=== PATIENT | female | born 1955 | race Caucasian/White ===

== ENCOUNTER → 2018-03-23 | Outpatient (CLI) | payer OTHER | END | disposition home or self-care (01) | LOC: LAB SHORT 10:16 → LAB 10:16 | PROVIDERS: Obstetrics & Gynecology | DX: Z01.419 Encounter for gynecological examination (general) (routine) without abnormal findings (principal) | CPT/HCPCS: 87624; G0123 ==

== ENCOUNTER → 2018-07-12 | Outpatient (CLI) | payer OTHER ==
[2018-07-13 09:39] LABS: Candida species (DNA Probe) Negative (NEGATIVE); G. vaginalis (DNA Probe) Negative (NEGATIVE); T. vaginalis (DNA Probe) Negative (NEGATIVE)
== END | disposition home or self-care (01) ==
LOC: LAB 14:18 → LAB SHORT 14:18
PROVIDERS: Obstetrics & Gynecology
DX: N76.0 Acute vaginitis (principal)
CPT/HCPCS: 87480; 87510; 87660

== ENCOUNTER → 2019-03-28 | Outpatient (CLI) | payer OTHER ==
[2019-03-30 15:06] LABS: HPV 16 Negative (Negative); HPV 18 Negative (Negative); HPV OTHER HR TYPES Positive (Negative)
== END | disposition home or self-care (01) ==
LOC: LAB 11:14 → LAB SHORT 11:14
PROVIDERS: Nurse Practitioner Obstetrics & Gynecology
DX: Z01.419 Encounter for gynecological examination (general) (routine) without abnormal findings (principal)
CPT/HCPCS: 87624; 87625; G0123

== ENCOUNTER → 2021-01-20 | Outpatient (CLI) | payer OTHER ==
[2021-01-21 16:09] LABS: HPV 16 Negative (Negative); HPV 18 Negative (Negative); HPV OTHER HR TYPES Positive (Negative)
== END | disposition home or self-care (01) ==
LOC: LAB SHORT 13:49 → LAB 13:49
PROVIDERS: Obstetrics & Gynecology
DX: Z01.419 Encounter for gynecological examination (general) (routine) without abnormal findings (principal)
CPT/HCPCS: 87624; G0123

== ENCOUNTER → 2022-02-04 | Outpatient (CLI) | payer OTHER ==
[2022-02-05 16:11] LABS: HPV 16 Negative (Negative); HPV 18 Negative (Negative); HPV OTHER HR TYPES Positive (Negative)
== END | disposition home or self-care (01) ==
LOC: LAB 08:45 → LAB SHORT 08:45
PROVIDERS: Obstetrics & Gynecology
DX: Z01.419 Encounter for gynecological examination (general) (routine) without abnormal findings (principal)
CPT/HCPCS: 87624; G0123

== ENCOUNTER → 2023-08-09 | Outpatient (CLI) | payer OTHER ==
[2023-08-11 15:11] LABS: HPV 16 Negative (Negative); HPV 18 Negative (Negative); HPV OTHER HR TYPES Negative (Negative)
== END ==
LOC: LAB 15:22 → LAB SHORT 15:22
PROVIDERS: Obstetrics & Gynecology
DX: Z01.419 Encounter for gynecological examination (general) (routine) without abnormal findings (principal)
CPT/HCPCS: 87624; G0145

== ENCOUNTER 2023-09-13 06:51 | Day surgery (SDC) | payer OTHER ==
[~2023-09-13] VITALS: Ht 162.6 cm; Wt 63.8 kg
[2023-09-13] MEDS ORDERED: ALPRAZOLAM110 PO (07:04)
[2023-09-13] MEDS ORDERED: EUTHYROX88 MC1 PO (07:04)
[2023-09-13] MEDS ORDERED: PRAMIPEXOLE0.125 M1 PO (07:04)
[2023-09-13] MEDS ORDERED: OMEP20ER PO (07:05)
[2023-09-13] MEDS ORDERED: Nadolol20 MG (07:05)
[2023-09-13] MEDS ORDERED: NEURONTIN300 MG PO (07:05)
[2023-09-13] MEDS ORDERED: ROSUVASTATIN CA10 MG PO (07:06)
[2023-09-13] MEDS ORDERED: PROZAC2010 PO (07:06)
--- NOTE | 2023-09-13 07:13 | NUR ---
09/13/23 0713 Jonathan Perez CALL LIGHT WITHIN REACH.
[2023-09-13 08:52] VITALS: BP 102/66
== END 2023-09-13 09:17 | disposition home or self-care (01) ==
LOC: ORSCSDS 06:51
DX: H02.831 Dermatochalasis of right upper eyelid (principal); H02.834 Dermatochalasis of left upper eyelid; H35.3130 Nonexudative age-related macular degeneration, bilateral, stage unspecified; F17.210 Nicotine dependence, cigarettes, uncomplicated; H25.13 Age-related nuclear cataract, bilateral; H52.222 Regular astigmatism, left eye; H52.4 Presbyopia; I10 Essential (primary) hypertension; E07.9 Disorder of thyroid, unspecified; Z79.899 Other long term (current) drug therapy
CPT/HCPCS: A9270; J2250; J2704; J3010; J7040

== ENCOUNTER 2024-08-23 13:41 | Day surgery (SDC) | payer OTHER ==
[~2024-08-23] VITALS: Ht 162.6 cm; Wt 58.6 kg
[~2024-08-23 13:41] MED LIST: ALPRAZOLAM110 PO; Atropine Sulfate 0.1 MG/ML 10ML SYR ONE; EUTHYROX88 MC1 PO; Glycopyrrolate 0.2 MG/ML 1MLVIAL ONE; Lactated Ringer's 1,000 ML IV ONE; Lidocaine 2% 5 ML SDV ONE; Lidocaine HCl/Pf 1% 5 ML VIAL ONE; Methylene Blue 1% 100 MG/10 ML VIAL ONE; NEURONTIN300 MG PO; Nadolol20 MG; OMEP20ER PO; Ondansetron HCl 2 MG / ML 2ML Vial ONE; PRAMIPEXOLE0.125 M1 PO; PROZAC2010 PO; ROSUVASTATIN CA10 MG PO; ePHEDrine Sulfate 50 MG/ML 1ML Injection ONE; propofoL 50 ML IV ONE
[2024-08-23] MEDS ORDERED: B-12500 MC2 (14:29)
[2024-08-23] MEDS ORDERED: Aspir 8181 MG (14:29)
[2024-08-23] MEDS ORDERED: BUSP5 (14:29)
[2024-08-23] MEDS ORDERED: ERGO400 (14:30)
[2024-08-23] MEDS ORDERED: ONDA4 (14:31)
[2024-08-23] MEDS ORDERED: METAMUCIL POWD798 GM (14:31)
[2024-08-23] MEDS ORDERED: TURMERIC500 M2 (14:32)
[2024-08-23] MEDS ORDERED: TOPI100 (14:32)
[2024-08-23] MEDS ORDERED: AREDS 2 (14:33)
[2024-08-23] MEDS ORDERED: LEVSOD100 (14:39)
[2024-08-23] MEDS ORDERED: Lactated Ringer's 1,000 ML IV ONE (14:57)
[2024-08-23] MEDS ORDERED: propofoL 50 ML IV ONE (15:37)
[2024-08-23 16:28] VITALS: BP 122/77
== END 2024-08-23 16:20 | disposition home or self-care (01) ==
LOC: ORSCSDS 13:41
PROVIDERS: Surgery
PROC: 0DBN8ZX Excision of Sigmoid Colon, Via Natural or Artificial Opening Endoscopic, Diagnostic (ICD-10-PCS; principal; 2024-08-23 15:15)
DX: Z12.11 Encounter for screening for malignant neoplasm of colon (principal); K52.9 Noninfective gastroenteritis and colitis, unspecified; K64.4 Residual hemorrhoidal skin tags; J44.9 Chronic obstructive pulmonary disease, unspecified; K21.9 Gastro-esophageal reflux disease without esophagitis; I10 Essential (primary) hypertension; F41.9 Anxiety disorder, unspecified; Z79.899 Other long term (current) drug therapy
CPT/HCPCS: 88305; 88313; J0461; J2003; J2405; J2704; J7120; Q9968

== ENCOUNTER → 2025-06-14 | Outpatient (CLI) | payer OTHER ==
[~2025-06-14] MED LIST changes: +AREDS 2; +Aspir 8181 MG; -Atropine Sulfate 0.1 MG/ML 10ML SYR ONE; +B-12500 MC2; +BUSP5; +ERGO400; -Glycopyrrolate 0.2 MG/ML 1MLVIAL ONE; +LEVSOD100; -Lactated Ringer's 1,000 ML IV ONE; -Lidocaine 2% 5 ML SDV ONE; -Lidocaine HCl/Pf 1% 5 ML VIAL ONE; +METAMUCIL POWD798 GM; -Methylene Blue 1% 100 MG/10 ML VIAL ONE; +ONDA4; -Ondansetron HCl 2 MG / ML 2ML Vial ONE; +TOPI100; +TURMERIC500 M2; -ePHEDrine Sulfate 50 MG/ML 1ML Injection ONE; -propofoL 50 ML IV ONE
[2025-06-14 12:59] LABS: Source, Urine Clean Catch
[2025-06-14 15:56] LABS: Bilirubin, Urine Neg (Neg); Glucose Qualitative, Urine Neg (Neg); Ketones, Urine Neg (Neg); Leukocyte Esterase, Urine Neg (Neg); Protein, Urine Neg (Neg); Specific Gravity, Urine 1.015 (1.003-1.022); Urobilinogen, Urine NORM (Normal)
[2025-06-14 16:19] LABS: Color, Urine Pale Yellow (P-Yellow)
== END | disposition home or self-care (01) ==
LOC: LAB SHORT 12:57 → LAB 12:57
PROVIDERS: Internal Medicine
DX: R39.89 Other symptoms and signs involving the genitourinary system (principal)
CPT/HCPCS: 81003